=== PATIENT | male | born 1975 | race Caucasian/White ===

== ENCOUNTER 2021-08-01 10:05 | Observation (INO) | payer BC ==
--- NOTE | 2021-08-01 10:23 | ED ---
Chest Pain HPI - General Chief Complaint: Chest Pain Stated Complaint: Chest pain Time Seen by Provider: 08/01/21 10:20 Source: patient Mode of arrival: ambulatory Limitations: no limitations - History of Present Illness Initial Comments: 46-year-old male with no reported past medical history presents emergency department with chest pain. States that it started approximately one month ago. He states it started slowly while active and has begun to affect him while he is now at rest. He reports that symptoms are worse at night. He will feel palpitations and short of breath. He has a significant family history of cardiac disease. He followed up with his primary care doctor today in office. They found him to be extremely hypertensive. He does report that he has had some recent headaches without visual changes. EKG was performed. Due to its concerning nature, they did recommend that he come to the emergency department for further evaluation. They did place him on lisinopril however this was called into the pharmacy and has not received any doses yet. He denies previous history of hypertension. No ripping or tearing sedation was back. No lower external swelling. Does admit to a history of a previous blood clot in his leg however this was when he was child. 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 No other alleviating, precipitating or modifying factors - Related Data Home Medications Medication Instructions Recorded Confirmed Ascorbic Acid [Vitamin C chew] 1,000 mg PO DAILY 08/01/21 08/01/21 Multivitamins, Thera [Multivitamin 1 tab PO DAILY 08/01/21 08/01/21 (formulary)] [place]-3 Fatty Acids/Fish Oil [Fish 2 cap PO DAILY 08/01/21 08/01/21 Oil 1,000 mg Softgel] Vitamin B-12 Gummy 2 tab PO DAILY 08/01/21 08/01/21 Vitamin D3 Gummy 2 tab PO DAILY 08/01/21 08/01/21 diphenhydrAMINE HCL [Benadryl] 25 mg PO DAILY 08/01/21 08/01/21 Allergies Allergy/AdvReac Type Severity Reaction Status Date / Time No Known Allergies Allergy Verified 08/01/21 12:07 Review of Systems ROS Statement: Those systems with pertinent positive or pertinent negative responses have been documented in the HPI. ROS Other: All systems not noted in ROS Statement are negative. EKG Findings - EKG Comments: EKG Findings:: EKG demonstrates a normal sinus rhythm with a ventricular rate of 77. NV interval 188. QRS 104. QTC of 420. No acute ST segment elevations. ST depression in lead 3 Past Medical History Past Medical History: No Reported History History of Any Multi-Drug Resistant Organisms: None Reported Past Surgical History: No Surgical Hx Reported Past Psychological History: No Psychological Hx Reported Smoking Status: Never smoker Past Alcohol Use History: None Reported Past Drug Use History: None Reported General Exam Limitations: no limitations General appearance: alert, in no apparent distress Head exam: Present: atraumatic, normocephalic, normal inspection Eye exam: Present: normal appearance, PERRL, EOMI. Absent: scleral icterus, conjunctival injection, periorbital swelling ENT exam: Present: normal exam, mucous membranes moist Neck exam: Present: normal inspection. Absent: tenderness, meningismus, lymphadenopathy Respiratory exam: Present: normal lung sounds bilaterally. Absent: respiratory distress, wheezes, rales, rhonchi, stridor Cardiovascular Exam: Present: regular rate, normal rhythm, normal heart sounds. Absent: systolic murmur, diastolic murmur, rubs, gallop, clicks GI/Abdominal exam: Present: soft, normal bowel sounds. Absent: distended, tenderness, guarding, rebound, rigid Extremities exam: Present: normal inspection, full ROM, normal capillary refill. Absent: tenderness, pedal edema, joint swelling, calf tenderness Back exam: Present: normal inspection Neurological exam: Present: alert, oriented X3, CN II-XII intact Psychiatric exam: Present: normal affect, normal mood Skin exam: Present: warm, dry, intact, normal color. Absent: rash Course Vital Signs 08/01/21 08/01/21 10:12 11:38 Temperature 98.7 F Pulse Rate 74 93 Respiratory 20 18 Rate Blood Pressure 184/107 166/99 O2 Sat by Pulse 99 95 Oximetry Chest Pain MDM - MDM Upon arrival patient is placed into room 6. A thorough history and physical exam was performed. IV is established laboratory studies were conducted. 12- lead EKG was performed. Patient remains on continuous pulse ox and cardiac monitoring. Laboratories is reviewed and demonstrated an elevated AST and ALTs. COVID-19 detected. First troponin is negative. X-ray demonstrates no acute process. As the patient does have several risk factors he will be admitted in order trend his troponins and have an echo performed. Patient agreed to this plan. I did call and speak with Dr. Ortega who agreed to admit the patient. He remained in stable condition was taken to the floor Disposition Clinical Impression: Chest pain Disposition: ADMITTED IP TO THIS HOSP Condition: Stable Is patient prescribed a controlled substance at d/c from ED?: No Decision to Admit Reason: Admit from EC Decision Date: 08/01/21 Decision Time: 12:00
[2021-08-01 10:45] LABS: Basophils # (A) 0.1 k/uL (0-0.2); Basophils % (A) 1 %; Eosinophils # (A) 0.2 k/uL (0-0.7); Eosinophils % (A) 3 %; HCT 50.7 % (39.0-53.0); HGB 16.8 gm/dL (13.0-17.5); Lymphocytes # (A) 2.4 k/uL (1.0-4.8); Lymphocytes % (A) 33 %; MCH 30.7 pg (25.0-35.0); MCHC 33.2 g/dL (31.0-37.0); MCV 92.3 fL (80.0-100.0); Mean Platelet Volume 8.8; Monocytes # (A) 0.4 k/uL (0-1.0); Monocytes % (A) 6 %; Neutrophils # (A) 3.9 k/uL (1.3-7.7); Neutrophils % (A) 54 %; Platelet Count 233 k/uL (150-450); RBC 5.49 m/uL (4.30-5.90); WBC 7.3 k/uL (3.8-10.6)
--- NOTE | 2021-08-01 10:46 | XR ---
EXAMINATION TYPE: XR chest 2V DATE OF EXAM: 08/01/2021 10:38 AM COMPARISON:None TECHNIQUE: Frontal view of the chest. CLINICAL INDICATION:Male, 46 years old with history of Chest Pain; FINDINGS: Lungs/Pleura: There is no evidence of pleural effusion, focal consolidation, or pneumothorax. Pulmonary vascularity: Unremarkable. Heart/mediastinum: Cardiomediastinal silhouette is unremarkable. Musculoskeletal: No acute osseous pathology. IMPRESSION: No acute cardiopulmonary disease/process.
[2021-08-01 10:57] LABS: ALT 172 U/L (4-49); AST 111 U/L (17-59); African American GFR (CKD) >90 (>60 ml/min/1.73 sqM); Alkaline Phosphatase 90 U/L (38-126); Anion Gap 9 mmol/L; Blood Urea Nitrogen 12 mg/dL (9-20); Calcium 9.9 mg/dL (8.4-10.2); Carbon Dioxide 28 mmol/L (22-30); Chloride 104 mmol/L (98-107); Glucose 115 mg/dL (74-99); INR 1.1 (<1.2); Lipase 73 U/L (23-300); Magnesium 2.1 mg/dL (1.6-2.3); Non-African American GFR(CKD) >90 (>60 ml/min/1.73 sqM); Partial Thromboplastin Time 25.1 sec (22.0-30.0); Potassium 4.3 mmol/L (3.5-5.1); Prothrombin Time 11.5 sec (9.0-12.0); Sodium 141 mmol/L (137-145); Total Bilirubin 1.2 mg/dL (0.2-1.3); Total Protein 9.9 g/dL (6.3-8.2)
[2021-08-01] MEDS ORDERED: ASPIRIN 81 MG PO STA (11:01)
[2021-08-01] MEDS ORDERED: NALOXONE 0.4 MG/ML 1 ML VIAL IV PRN (12:00)
[2021-08-01] MEDS: LOSARTAN 50 MG TAB PO SCH (14:21)
--- NOTE | 2021-08-01 14:31 | P.CRDCN ---
History of Present Illness Consult date: 08/01/21 History of present illness: 46-year-old gentleman with no significant past medical history comes in to hospital with chest pain. He's been having chest tightness for the last several weeks that has gotten particularly worse over the last few days. It is sharp pericardial mildly intensity not related to exertion and not associated with diaphoresis. There is no prior history of coronary artery disease or congestive heart failure. Patient's history is negative for hypertension diabetes dyslipidemia is not on any medications at the moment. Patient was seen by primary care physician today and had severely elevated blood pressures hence came to the ER and got admitted. His EKG does not reveal ischemic changes in the first set of cardiac enzymes are negative. And starting the patient on losartan 50 mg daily for better blood pressure control will obtain a 2-D echo to assess his LV function and wall motion and obtain serial troponins to rule out myocardial infarction opted that he can be discharged home and arrange for an outpatient stress test General: The patient is awake and alert, in no distress, and does not appear acutely ill. Skin: Skin is warm and dry and no rashes or lesions are noted. Eye: Pupils are equal, round and reactive to light, extra-ocular movements are intact; there is normal conjunctiva bilaterally. Ears, nose, mouth and throat: There are moist mucous membranes and no oral lesions. Neck: The neck is supple, there is no tenderness or JVD. Cardiovascular: There is a regular rate and rhythm. No murmur, rub or gallop is appreciated. Respiratory: Lungs are clear to auscultation, respirations are non-labored, breath sounds are equal. Gastrointestinal: Soft, non-distended, non-tender abdomen without masses or or ganomegaly noted. There is no rebound or guarding present. Bowel sounds are unremarkable. Back: There is no tenderness to palpation in the midline. There is no obvious deformity. Musculoskeletal: Normal ROM, no tenderness, There is no pedal edema. There is no calf tenderness or swelling. Extremities: No edema. Vascular: Femoral pulse is normal. Posterior tibial pulses are normal .Dorsalis pedis is palpable. Neurological: CN II-XII intact. There are no obvious motor or sensory deficits. Speech is normal. Psychiatric: Cooperative, appropriate mood & affect, normal judgment. Constitutional: Denies chills. Denies fever. Eyes: Denies blurred vision. Denies pain. Ears, nose, mouth and throat: Denies headache. Denies sore throat. Cardiovascular: Significant for chest pain. Denies shortness of breath. Respiratory: Denies cough. Gastrointestinal: Denies abdominal pain. Denies diarrhea. Denies nausea. Denies vomiting. Musculoskeletal: Denies myalgias. Integumentary: Denies pruritus. Denies rash. Neurological: Denies numbness. Denies weakness. Psychiatric: Denies anxiety. Denies depression. Endocrine: Denies fatigue. Denies weight change. Genitourinary: Denies burning, hematuria, frequency of urination. Hematological: No anemia or excess bleeding. Assessment and plan: #1 precordial chest pain #2 new-onset essential hypertension I will start the patient on losartan obtain serial troponins check an echocardiogram and if the myocardial infarction is ruled out discharge him home and arrange for an outpatient stress test His physical exam is benign and unremarkable other than the elevated blood pressures Past Medical History Past Medical History: No Reported History History of Any Multi-Drug Resistant Organisms: None Reported Past Surgical History: No Surgical Hx Reported Past Psychological History: No Psychological Hx Reported Smoking Status: Never smoker Past Alcohol Use History: None Reported Past Drug Use History: None Reported Medications and Allergies Home Medications Medication Instructions Recorded Confirmed Type Ascorbic Acid [Vitamin C chew] 1,000 mg PO DAILY 08/01/21 08/01/21 History Multivitamins, Thera [Multivitamin 1 tab PO DAILY 08/01/21 08/01/21 History (formulary)] [place]-3 Fatty Acids/Fish Oil [Fish 2 cap PO DAILY 08/01/21 08/01/21 History Oil 1,000 mg Softgel] Vitamin B-12 Gummy 2 tab PO DAILY 08/01/21 08/01/21 History Vitamin D3 Gummy 2 tab PO DAILY 08/01/21 08/01/21 History diphenhydrAMINE HCL [Benadryl] 25 mg PO DAILY 08/01/21 08/01/21 History Allergies Allergy/AdvReac Type Severity Reaction Status Date / Time No Known Allergies Allergy Verified 08/01/21 12:07 Physical Exam Vitals: Vital Signs Temp Pulse Resp BP Pulse Ox 08/01/21 11:38 93 18 166/99 95 08/01/21 10:12 98.7 F 74 20 184/107 99 Intake and Output 07/31/21 08/01/21 08/01/21 22:59 06:59 14:59 Other: Weight 104.326 kg Results 08/01/21 10:32 08/01/21 10:32 Cardiac Enzymes 08/01/21 08/01/21 Range/Units 10:32 10:32 AST 111 H (17-59) U/L Troponin I <0.012 (0.000-0.034) ng/mL Coagulation 08/01/21 Range/Units 10:32 PT 11.5 (9.0-12.0) sec APTT 25.1 (22.0-30.0) sec CBC 08/01/21 Range/Units 10:32 WBC 7.3 (3.8-10.6) k/uL RBC 5.49 (4.30-5.90) m/uL Hgb 16.8 (13.0-17.5) gm/dL Hct 50.7 (39.0-53.0) % Plt Count 233 (150-450) k/uL Comprehensive Metabolic Panel 08/01/21 Range/Units 10:32 Sodium 141 (137-145) mmol/L Potassium 4.3 (3.5-5.1) mmol/L Chloride 104 (98-107) mmol/L Carbon Dioxide 28 (22-30) mmol/L BUN 12 (9-20) mg/dL Creatinine 0.99 (0.66-1.25) mg/dL Glucose 115 H (74-99) mg/dL Calcium 9.9 (8.4-10.2) mg/dL AST 111 H (17-59) U/L ALT 172 H (4-49) U/L Alkaline Phosphatase 90 (38-126) U/L Total Protein 9.9 H (6.3-8.2) g/dL Albumin 5.0 (3.5-5.0) g/dL Current Medications Generic Name Dose Route Start Last Admin Trade Name Freq PRN Reason Stop Dose Admin Losartan Potassium 50 mg 08/01/21 14:30 08/01/21 14:21 Losartan 50 Mg Tab PO 50 mg DAILY OLIVERIO Administration Naloxone HCl 0.2 mg 08/01/21 12:00 Naloxone 0.4 Mg/Ml 1 Ml Vial IV Q2M PRN Opioid Reversal Intake and Output 07/31/21 08/01/21 08/01/21 22:59 06:59 14:59 Other: Weight 104.326 kg Patient Weight 08/02/21 06:59 Weight 104.326 kg 08/01/21 10:32 08/01/21 10:32
--- NOTE | 2021-08-01 18:30 | P.HPIM ---
History of Present Illness H&P Date: 08/01/21 Chief Complaint: Chest pain 46-year-old male with no reported past medical history presents emergency department with chest pain. States that it started approximately one month ago. He states it started slowly while active and has begun to affect him while he is now at rest. He reports that symptoms are worse at night. He will feel palpitations and short of breath. He has a significant family history of cardiac disease. He followed up with his primary care doctor today in office. They found him to be extremely hypertensive. He does report that he has had some recent headaches without visual changes. EKG was performed. Due to its concerning nature, they did recommend that he come to the emergency department for further evaluation. They did place him on lisinopril however this was called into the pharmacy and has not received any doses yet. He denies previous history of hypertension. No ripping or tearing sedation was back. No lower external swelling. Does admit to a history of a previous blood clot in his leg however this was when he was child. 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 No other alleviating, precipitating or modifying factors Review of Systems REVIEW OF SYSTEMS: CONSTITUTIONAL: No fever, no malaise, no fatigue. HEENT: No recent visual problems or hearing problems. Denied any sore throat. CARDIOVASCULAR: No chest pain, orthopnea, PND, no palpitations, no syncope. PULMONARY: No shortness of breath, no cough, no hemoptysis. GASTROINTESTINAL: No diarrhea, no nausea, no vomiting, no abdominal pain. NEUROLOGICAL: No headaches, no weakness, no numbness. HEMATOLOGICAL: Denies any bleeding or petechiae. GENITOURINARY: Denies any burning micturition, frequency, or urgency. MUSCULOSKELETAL/RHEUMATOLOGICAL: Denies any joint pain, swelling, or any muscle pain. ENDOCRINE: Denies any polyuria or polydipsia. The rest of the 14-point review of systems is negative. Past Medical History Past Medical History: No Reported History History of Any Multi-Drug Resistant Organisms: None Reported Past Surgical History: No Surgical Hx Reported Past Psychological History: No Psychological Hx Reported Smoking Status: Never smoker Past Alcohol Use History: None Reported Past Drug Use History: None Reported - Past Family History Mother Family Medical History: Hypertension, Thyroid Disorder Father Family Medical History: Diabetes Mellitus, Hypertension Medications and Allergies Home Medications Medication Instructions Recorded Confirmed Type Ascorbic Acid [Vitamin C chew] 1,000 mg PO DAILY 08/01/21 08/01/21 History Multivitamins, Thera [Multivitamin 1 tab PO DAILY 08/01/21 08/01/21 History (formulary)] [place]-3 Fatty Acids/Fish Oil [Fish 2 cap PO DAILY 08/01/21 08/01/21 History Oil 1,000 mg Softgel] Vitamin B-12 Gummy 2 tab PO DAILY 08/01/21 08/01/21 History Vitamin D3 Gummy 2 tab PO DAILY 08/01/21 08/01/21 History diphenhydrAMINE HCL [Benadryl] 25 mg PO DAILY 08/01/21 08/01/21 History Allergies Allergy/AdvReac Type Severity Reaction Status Date / Time No Known Allergies Allergy Verified 08/01/21 12:07 Physical Exam Vitals: Vital Signs Temp Pulse Pulse Resp BP BP Pulse Ox 08/01/21 14:39 98.2 F 67 17 166/102 96 08/01/21 11:38 93 18 166/99 95 08/01/21 10:12 98.7 F 74 20 184/107 99 Intake and Output 07/31/21 08/01/21 08/01/21 22:59 06:59 14:59 Intake Total 118 Balance 118 Intake: Oral 118 Other: # Voids 3 # Bowel Movements 0 Weight 104.326 kg PHYSICAL EXAMINATION: GENERAL: The patient is alert and oriented x3, not in any acute distress. Well developed, well nourished. HEENT: Pupils are round and equally reacting to light. EOMI. No scleral icterus. No conjunctival pallor. Normocephalic, atraumatic. No pharyngeal erythema. No thyromegaly. CARDIOVASCULAR: S1 and S2 present. No murmurs, rubs, or gallops. PULMONARY: Chest is clear to auscultation, no wheezing or crackles. ABDOMEN: Soft, nontender, nondistended, normoactive bowel sounds. No palpable organomegaly. MUSCULOSKELETAL: No joint swelling or deformity. EXTREMITIES: No cyanosis, clubbing, or pedal edema. NEUROLOGICAL: Gross neurological examination did not reveal any focal deficits. SKIN: No rashes. Results CBC & Chem 7: 08/01/21 10:32 08/01/21 10:32 Labs: Abnormal Lab Results - Last 24 Hours (Table) 08/01/21 Range/Units 10:32 Glucose 115 H (74-99) mg/dL AST 111 H (17-59) U/L ALT 172 H (4-49) U/L Total Protein 9.9 H (6.3-8.2) g/dL Assessment and Plan Assessment: 1. Chest pain - We will admit to cardiac telemetry; monitor EKG and trend troponin; recommend 2-D echo - Aspirin and beta blockers; consult cardiology for further recommendations 2. Uncontrolled hypertension; new onset; patient hasn't placed on losartan 50 mg daily; we will monitor blood pressure closely and make further adjustments as needed DVT prophylaxis; SCDs CODE STATUS; full code
[2021-08-02] MEDS: LOSARTAN 50 MG TAB PO SCH (08:09)
--- NOTE | 2021-08-02 09:03 | P.PN ---
Subjective Patient is admitted to hospital with chest pain. He is doing better this morning. Did not have further episodes of chest pain. Cardiac enzymes have been negative. EKG did not reveal any ischemic changes. We could not do any testing on him because of the weekend. This morning on exam his comfortable at rest vital signs are stable there is a jugular venous distention chest exam reveals good air entry bilaterally heart exam reveals first and second heart sounds no gallop no murmur no rub abdomen is soft exam extremities did not reveal any edema peripheral pulses are felt Labs have been reviewed: Troponins are negative Assessment and plan: Precordial chest pain rule out CAD Patient is stable to be discharged I office will call and set up a stress test and echocardiogram on him tomorrow Objective - Vital Signs Vital signs: Vital Signs Temp 98.8 F 08/02/21 07:00 Pulse 71 08/02/21 07:00 Resp 17 08/02/21 07:00 BP 150/86 08/02/21 07:00 Pulse Ox 98 08/02/21 01:36 Intake & Output 08/01/21 08/02/21 08/02/21 18:59 06:59 18:59 Intake Total 118 Balance 118 Weight 104.326 kg Intake: Oral 118 Other: # Voids 3 3 # Bowel Movements 0 - Labs CBC & Chem 7: 08/01/21 10:32 08/01/21 10:32 Labs: Abnormal Lab Results - Last 24 Hours (Table) 08/01/21 Range/Units 10:32 Glucose 115 H (74-99) mg/dL AST 111 H (17-59) U/L ALT 172 H (4-49) U/L Total Protein 9.9 H (6.3-8.2) g/dL
[2021-08-02 09:25] LABS: African American GFR (CKD) >90 (>60 ml/min/1.73 sqM); Anion Gap 9 mmol/L; Blood Urea Nitrogen 12 mg/dL (9-20); Calcium 9.6 mg/dL (8.4-10.2); Carbon Dioxide 27 mmol/L (22-30); Chloride 104 mmol/L (98-107); Glucose 109 mg/dL (74-99); Non-African American GFR(CKD) >90 (>60 ml/min/1.73 sqM); Potassium 4.5 mmol/L (3.5-5.1); Sodium 140 mmol/L (137-145)
[2021-08-02 11:10] LABS: Basophils # (A) 0.08 X 10*3/uL (0.00-0.10); Eosinophils # (A) 0.31 X 10*3/uL (0.04-0.35); Eosinophils % (A) 3.8 %; HCT 50.2 % (39.6-50.0); HGB 16.8 g/dL (13.0-17.0); Lymphocytes # (A) 2.42 X 10*3/uL (0.90-5.00); Lymphocytes % (A) 29.5 %; MCH 30.1 pg (27.0-32.0); MCHC 33.5 g/dL (32.0-37.0); Mean Platelet Volume 11.5 fL (9.5-12.2); Monocytes # (A) 0.82 X 10*3/uL (0.20-1.00); Neutrophils # (A) 4.55 X 10*3/uL (1.80-7.70); Neutrophils % (A) 55.6 %; Platelet Count 252 X 10*3/uL (140-440); RBC 5.58 X 10*6/uL (4.40-5.60); RDW 12.7 % (11.5-14.5); WBC 8.19 X 10*3/uL (4.50-10.00)
--- NOTE | 2021-08-02 13:52 | ECHOF ---
Referral Reason:chest pain MEASUREMENTS -------- HEIGHT: 182.9 cm WEIGHT: 104.3 kg BP: RVIDd: 3.7 cm (< 3.3) IVSd: 1.4 cm (0.6 - 1.1) LVIDd: 3.5 cm (3.9 - 5.3) LVPWd: 2.0 cm (0.6 - 1.1) IVSs: 1.5 cm LVIDs: 2.6 cm LVPWs: 1.5 cm LA Diam: 3.9 cm (2.7 - 3.8) LAESV Index (A-L): 31.00 ml/m Ao Diam: 3.1 cm (2.0 - 3.7) AV Cusp: 2.4 cm (1.5 - 2.6) LA Diam: 4.0 cm (2.7 - 3.8) MV EXCURSION: 20.130 mm (> 18.000) MV EF SLOPE: 55 mm/s (70 - 150) EPSS: 0.2 cm MV E Sam: 0.43 m/s MV DecT: 253 ms MV A Sam: 0.48 m/s MV E/A Ratio: 0.89 FINDINGS -------- Sinus rhythm. This was a technically good study. The left ventricular size is normal. There is borderline concentric left ventricular hypertrophy. Overall left ventricular systolic function is normal with, an EF between 55 - 60 %. The right ventricle is mildly enlarged. LA is midly dilated 29-33ml/m2. The right atrial size is normal. The aortic valve is trileaflet, and appears structurally normal. No aortic stenosis or regurgitation. Mild mitral regurgitation is present. Mild tricuspid regurgitation present. Right ventricular systolic pressure is normal at < 35 mmHg. There is no pulmonic regurgitation present. There is no pericardial effusion. CONCLUSIONS -------- 1. The left ventricular size is normal. 2. There is borderline concentric left ventricular hypertrophy. 3. Overall left ventricular systolic function is normal with, an EF between 55 - 60 %. 4. The right ventricle is mildly enlarged. 5. LA is midly dilated 29-33ml/m2. 6. The right atrial size is normal. 7. The aortic valve is trileaflet, and appears structurally normal. No aortic stenosis or regurgitati on. 8. Mild mitral regurgitation is present. 9. Mild tricuspid regurgitation present. 10. There is no pericardial effusion. REPLACER: Marian Colbert RDCS
[2021-08-02 14:43] VITALS: BP 161/97; PULSE 86; RESP 18; TEMP 98.5
== END 2021-08-02 17:35 | disposition home or self-care (01) ==
LOC: EC 10:05 → 6NMEDSUR 12:05
PROVIDERS: ADMIT Internal Medicine; ATTEND Internal Medicine
DX: R07.2 Precordial pain (principal); I10 Essential (primary) hypertension; R74.01 Elevation of levels of liver transaminase levels; I08.1 Rheumatic disorders of both mitral and tricuspid valves; Z20.822 Contact with and (suspected) exposure to COVID-19; Z86.718 Personal history of other venous thrombosis and embolism; Z82.49 Family history of ischemic heart disease and other diseases of the circulatory system; Z83.3 Family history of diabetes mellitus; Z83.49 Family history of other endocrine, nutritional and metabolic diseases
CPT/HCPCS: 99285; 36415; 93005; 93306; 83880; 80053; 80048; 83690; 83735; 84484; 85025 ×2; 85610; 85730; 87635; 71046; G0378 ×2